=== PATIENT | male | born 1965 | race Caucasian/White ===

== ENCOUNTER 2017-02-10 04:52 | Observation (INO) | payer BC ==
[2017-02-10] MEDS ORDERED: SODIUM CHLORIDE 0.9% 1000ML 1,000 ML IV ONE (05:04)
[2017-02-10] MEDS ORDERED: HYDROMORPHONE HCL 2 MG/ML SOL IV ONE ×2 (05:07→06:41)
[2017-02-10] MEDS ORDERED: ONDANSETRON HCL 4 MG/2 ML SOL IV ONE (05:08)
[2017-02-10] MEDS ORDERED: HYDROMORPHONE 1 MG/ML SYRINGE ONE ×4 (05:09→06:57)
[2017-02-10] MEDS ORDERED: ONDANSETRON HCL 4 MG/2 ML SOL ONE (05:09)
[2017-02-10 05:19] LABS: BASOPHILS % (AUTO) 1 % (0-3); EOSINOPHILS % (AUTO) 2 % (0-9); HEMATOCRIT 43 % (39-53); MEAN CORPUSCULAR HGB CONC 34.6 gm/dl (32.0-36.0); MEAN CORPUSCULAR VOLUME 91 fL (80-100); MONOCYTES % (AUTO) 8.3 % (0-12); NEUTROPHILS % (AUTO) 71.7 % (37-80)
[2017-02-10 05:32] LABS: CALCIUM 8.4 mg/dl (8.5-10.1); POTASSIUM 3.6 mMol/L (3.5-5.1); URIC ACID 4.8 mg/dl (2.6-7.2)
[2017-02-10] MEDS ORDERED: TAMSULOSIN HYDROCHLORIDE 0.4 MG CAP ONE (06:56)
[2017-02-10] MEDS: TAMSULOSIN HYDROCHLORIDE 0.4 MG CAP PO SCH ×2 (07:10→21:28)
[2017-02-10] MEDS: SODIUM CHLORIDE 0.9% 1000ML 1,000 ML IV SCH ×3 (07:13→21:28)
[2017-02-10] MEDS: HYDROCHLOROTHIAZIDE 25 MG TAB PO SCH (08:34)
[2017-02-10] MEDS: METFORMIN HYDROCHLORIDE 500 MG TAB PO SCH (08:34)
[2017-02-10] MEDS: ASPIRIN 81 MG CHEWABLE CTB PO SCH (08:34)
[2017-02-10] MEDS: ALLOPURINOL 100 MG TAB PO SCH (08:34)
[2017-02-10] MEDS ORDERED: PRAVASTATIN SODIUM 10 MG PO SCH (09:00)
[2017-02-10] MEDS: PRAVASTATIN SODIUM 20 MG TAB PO SCH (09:47)
[2017-02-10] MEDS: SODIUM CHLORIDE 0.9% FLUSH 10 ML SOL IV SCH ×3 (11:26→23:50)
[2017-02-10] MEDS: HYDROMORPHONE 1 MG/ML SYRINGE IV PRN ×2 (11:27→15:30)
[2017-02-10 13:05] LABS: APPEARANCE,URINE Clear; BILIRUBIN,URINE NEGATIVE (NEGATIVE); COLOR,URINE Yellow; GLUCOSE, URINE (UA) NEGATIVE (NEGATIVE); KETONES,URINE NEGATIVE (NEGATIVE); LEUKOCYTE ESTERASE ,URINE NEGATIVE (NEGATIVE); NITRATE,URINE NEGATIVE (NEGATIVE); OCCULT BLOOD,URINE TRACE LYSED (NEG-TRACE); UROBILINOGEN,URINE 0.2 (0.2-1.0 EU)
[2017-02-10 13:11] LABS: RBC,URINE 0-2 (0-3AV/HPF); WBC,URINE 0-2 (0-5AV/HPF)
[2017-02-10] MEDS: APAP/HYDROCODONE 325/5 TAB PO PRN (21:28)
[2017-02-10 23:22] VITALS: RESP 16
[2017-02-11] MEDS: APAP/HYDROCODONE 325/5 TAB PO PRN ×2 (01:55→06:36)
[2017-02-11] MEDS: SODIUM CHLORIDE 0.9% 1000ML 1,000 ML IV SCH (04:17)
[2017-02-11] MEDS: SODIUM CHLORIDE 0.9% FLUSH 10 ML SOL IV SCH (07:32)
[2017-02-11 09:04] VITALS: BP 123/75; PULSE 57; TEMP 98; O2SAT 96
[2017-02-11] MEDS: ASPIRIN 81 MG CHEWABLE CTB PO SCH (09:10)
[2017-02-11] MEDS: ALLOPURINOL 100 MG TAB PO SCH (09:11)
[2017-02-11] MEDS: HYDROCHLOROTHIAZIDE 25 MG TAB PO SCH (09:11)
[2017-02-11] MEDS: METFORMIN HYDROCHLORIDE 500 MG TAB PO SCH (09:11)
[2017-02-11] MEDS: PRAVASTATIN SODIUM 20 MG TAB PO SCH (09:11)
== END 2017-02-11 10:15 | disposition home or self-care (01) ==
LOC: ED 04:52 → ACUTE CARE 07:00 → UNDOADMOB 07:00 → ACUTE CARE 07:35
PROVIDERS: ADMIT Family Medicine; ATTEND Family Medicine
DX: N13.2 Hydronephrosis with renal and ureteral calculous obstruction (principal); E11.9 Type 2 diabetes mellitus without complications
CPT/HCPCS: 99285 ×3; 51798; 74176; 80048; 81001; 82962 ×2; 84550; 85025; 94760; J1170 ×2; J2405; 96365; 96366; 96374; 96375; 99218

== ENCOUNTER 2017-02-12 18:34 | Emergency (ER) | payer BC ==
[2017-02-12 18:34] VITALS: O2SAT 96
[2017-02-12 19:13] VITALS: BP 141/73; PULSE 70; TEMP 98.7
[2017-02-12 19:26] LABS: APPEARANCE,URINE Clear; BILIRUBIN,URINE NEGATIVE (NEGATIVE); COLOR,URINE Yellow; GLUCOSE, URINE (UA) NEGATIVE (NEGATIVE); KETONES,URINE TRACE (NEGATIVE); LEUKOCYTE ESTERASE ,URINE NEGATIVE (NEGATIVE); NITRATE,URINE NEGATIVE (NEGATIVE); OCCULT BLOOD,URINE 2+ (NEG-TRACE); PH,URINE 5.5; UROBILINOGEN,URINE 0.2 (0.2-1.0 EU)
[2017-02-12 19:31] LABS: WBC,URINE 0-1 (0-5AV/HPF)
== END 2017-02-12 19:46 | disposition home or self-care (01) ==
LOC: ED 18:34
DX: N20.1 Calculus of ureter (principal)
CPT/HCPCS: 51798; 81001; 99282